=== PATIENT | male | born 1960 | race Hispanic/Latino ===

== ENCOUNTER 2020-03-23 09:00 | Inpatient (IN) | payer OTHER ==
[~2020-03-23] VITALS: Ht 170.2 cm; Wt 56.7 kg
[2020-03-23 11:20] LABS: BASOPHILS % (AUTO) 0.2 % (0.0-5.0); EOSINOPHILS % (AUTO) 0.5 % (0.0-8.0); HEMATOCRIT 44.9 % (42-54); LYMPHOCYTES % (AUTO) 12.4 % (21.0-51.0); MEAN CORPUSCULAR HEMOGLOBIN 36.4 pg (27.0-33.0); MEAN CORPUSCULAR HGB CONC 32.7 g/dL (32.0-36.0); MEAN CORPUSCULAR VOLUME 111.1 fL (79-99); MONOCYTES % (AUTO) 8.8 % (3.0-13.0); NEUTROPHILS % (AUTO) 77.5 % (40.0-77.0); PLATELET COUNT (AUTO) 190 K/uL (130-400); RED BLOOD CELL COUNT(AUTO) 4.04 MIL/uL (4.50-6.20); WHITE BLOOD COUNT (AUTO) 6.2 K/uL (4.8-10.8)
[2020-03-23 11:21] LABS: CREATININE 0.9 mg/dL (0.5-1.5); POTASSIUM 4.2 mmol/L (3.5-5.1)
[2020-03-23 11:36] LABS: APPEARANCE,URINE Cloudy (CLEAR); BILIRUBIN,URINE Negative (NEGATIVE); COLOR,URINE Yellow (YELLOW); GLUCOSE, URINE (UA) Negative (NEGATIVE); KETONES,URINE Negative (NEGATIVE); LEUKOCYTE ESTERASE ,URINE Trace (NEGATIVE); NITRATE,URINE Negative (NEGATIVE); OCCULT BLOOD,URINE Negative (NEGATIVE); PH,URINE 7.5 (5.0-8.0); PROTEIN,URINE Negative (NEGATIVE)
[2020-03-23 12:27] LABS: INR 0.88 (0.85-1.15); PROTHROMBIN TIME 9.5 SEC (9.6-11.6)
[2020-03-23 12:54] LABS: AMORPHOUS SEDIMENT,UR Many /LPF (None Seen); BACTERIA,URINE Rare /HPF (None Seen); MUCUS,URINE Few LPF (None Seen); RBC,URINE 0-1 /HPF (0-1); SQUAMOUS EPITHELIAL CELL,UR Rare /HPF (0-2); WBC,URINE 0-1 /HPF (0-1)
[2020-03-26 16:14] VITALS: BP 106/68
[2020-03-27] MEDS: GENTAMICIN SULFATE 240 MG in SODIUM CHLORIDE 0.9% 100 ML IV SCH (10:30)
[2020-03-27] MEDS ORDERED: CALC600T15 PO (14:03)
[2020-03-27] MEDS ORDERED: PRED10TA3 PO (14:03)
[2020-03-27] MEDS ORDERED: GABA-533 PO (14:03)
[2020-03-27] MEDS ORDERED: FORTEO SQ (14:03)
[2020-03-27] MEDS ORDERED: AZAT50TA17 PO (14:03)
[2020-03-27] MEDS ORDERED: PANT40TA54 PO (14:03)
[2020-03-27] MEDS ORDERED: FLUT1BLS3 IH (14:03)
[2020-03-27] MEDS ORDERED: MULT-729 PO (14:03)
[2020-03-27] MEDS ORDERED: CHOL200026 PO (14:03)
[2020-03-28] MEDS: GENTAMICIN SULFATE 240 MG in SODIUM CHLORIDE 0.9% 100 ML IV SCH (10:30)
[2020-03-29] MEDS: GENTAMICIN SULFATE 240 MG in SODIUM CHLORIDE 0.9% 100 ML IV SCH (10:30)
[2020-03-30] VITALS (23 sets, daily range): BP systolic 97–126; BP diastolic 61–80
[2020-03-30] MEDS ORDERED: CEFAZOLIN SODIUM 1 GM VIAL IVP ONE (08:00)
[2020-03-30] MEDS ORDERED: SODIUM CHLORIDE 0.9% 1000ML 1,000 ML IV ONE (09:53)
[2020-03-30] MEDS: GENTAMICIN SULFATE 240 MG in SODIUM CHLORIDE 0.9% 100 ML IV SCH (10:30)
[2020-03-30] MEDS ORDERED: CEFAZOLIN SODIUM 1 GM VIAL ONE ×4 (11:52→16:12)
[2020-03-30] MEDS ORDERED: SALBUTAMOL PO (12:02)
[2020-03-30] MEDS ORDERED: THEOPHYLLINE PO (12:02)
[2020-03-30] MEDS ORDERED: ACETAMINOPHEN EXTRA STRENGTH 500 MG TABLET ONE (14:10)
[2020-03-30] MEDS ORDERED: CELECOXIB 200 MG CAP ONE (14:10)
[2020-03-30] MEDS ORDERED: METOCLOPRAMIDE 10 MG/2 ML VIAL ONE (14:10)
[2020-03-30] MEDS ORDERED: KETOROLAC TROMETHAMINE 15MG/ML ONE (14:10)
[2020-03-30] MEDS ORDERED: SUCCINYLCHOLINE CHLORIDE 20 MG/ML 10 ML VIAL ONE ×2 (14:22→15:20)
[2020-03-30] MEDS ORDERED: NEOSTIGMINE 5MG/5ML SYR IV ONE (14:22)
[2020-03-30] MEDS ORDERED: PROPOFOL 10 MG/ML 20ML VIAL IV ONE (14:22)
[2020-03-30] MEDS ORDERED: MIDAZOLAM HCL 1 MG/ML 2ML VIAL ONE (14:22)
[2020-03-30] MEDS ORDERED: FENTANYL CITRATE PF 50 MCG/1 ML 2ML VIAL ONE (14:22)
[2020-03-30] MEDS ORDERED: ONDANSETRON HCL 4 MG/2 ML VIAL ONE ×2 (14:22→17:47)
[2020-03-30] MEDS ORDERED: LIDOCAINE PF 2% 5ML ABBOJECT ONE (14:22)
[2020-03-30] MEDS ORDERED: DEXAMETHASONE SOD PHOSPHATE 10MG/ML 1ML VIAL ONE (14:22)
[2020-03-30] MEDS ORDERED: GLYCOPYRROLATE 1 MG/5 ML SYRINGE ONE (14:22)
[2020-03-30] MEDS ORDERED: ROCURONIUM 10MG/1ML SYR 10 MG/ML ML ONE ×2 (14:22→16:17)
[2020-03-30] MEDS ORDERED: TRANEXAMIC ACID 1000MG/10ML ONE (14:40)
[2020-03-30] MEDS ORDERED: HYDROCORTISONE SOD SUCCINATE 100 MG/2 ML VIAL ONE (15:13)
[2020-03-30] MEDS ORDERED: EPHEDRINE SULFATE 50 MG/ML AMPULE ONE (15:28)
[2020-03-30] MEDS ORDERED: PHENYLEPHRINE HCL 10 MG/ML 1ML VIAL IV ONE ×2 (15:28→15:30)
[2020-03-30] MEDS ORDERED: ROPIVACAINE 0.5% 5MG/ML 30ML IJ ONE (15:30)
[2020-03-30] MEDS ORDERED: ONDANSETRON HCL 4 MG/2 ML VIAL IVP PRN (18:15)
[2020-03-30] MEDS ORDERED: LIDOCAINE HCL-MPF 1% 2ML VIAL IV PRN (18:15)
[2020-03-30] MEDS ORDERED: DiphenhydrAMINE HCL 50 MG/ML VIAL IVP PRN (18:15)
[2020-03-30] MEDS ORDERED: OXYCODONE HCL 5 MG TAB PO PRN (18:15)
[2020-03-30] MEDS ORDERED: KETOROLAC TROMETHAMINE 15MG/ML IV PRN (18:15)
[2020-03-30] MEDS ORDERED: FERROUS FUMARATE 324 MG TABLET PO PRN (18:15)
[2020-03-30] MEDS: ACETAMINOPHEN EXTRA STRENGTH 500 MG TABLET PO SCH (18:15)
[2020-03-30] MEDS: SODIUM CHLORIDE 0.9% 1000ML 1,000 ML IV SCH ×3 (18:15→20:38)
[2020-03-30] MEDS ORDERED: CALCIUM CARBONATE 500 MG TABLET PO PRN (18:15)
[2020-03-30] MEDS ORDERED: TEMAZEPAM 15 MG CAPSULE PO PRN (18:15)
[2020-03-30] MEDS ORDERED: POTASSIUM CHLORIDE 10% ELIXIR 20 MEQ/15 ML UDCUP PO PRN (18:15)
[2020-03-30] MEDS ORDERED: POTASSIUM CHLORIDE 20 MEQ ERTAB PO PRN (18:15)
[2020-03-30] MEDS ORDERED: TRAMADOL HCL 50 MG TABLET PO PRN (18:15)
[2020-03-30] MEDS ORDERED: POTASSIUM CHLORIDE 20MEQ/100ML 100 ML IV PRN (18:15)
[2020-03-30] MEDS ORDERED: TRANEXAMIC ACID 1000MG/10ML IV ONE (18:45)
[2020-03-30] MEDS ORDERED: TERIPARATIDE SQ SCH (21:00)
[2020-03-30] MEDS ORDERED: **HM**(Cholecalciferol (Vitamin D3) (Vitamin D3) 50 MCG PO SCH (21:00)
[2020-03-30] MEDS ORDERED: **HM**(Fluticasone/Umeclidin/Vilanter (Trelegy Ellipta 100-62.5- IH SCH (21:00)
[2020-03-30] MEDS: GABAPENTIN 300 MG CAPSULE PO SCH (22:15)
[2020-03-30] MEDS: THEOPHYLLINE ANHYDROUS 100 MG CAP.ER.24H PO SCH (22:15)
[2020-03-30] MEDS: AZATHIOPRINE 50 MG TAB PO SCH (22:15)
[2020-03-30] MEDS: CELECOXIB 200 MG CAP PO SCH (22:16)
[2020-03-30] MEDS: CALCIUM CARBONATE 500 MG TABLET PO SCH (22:16)
--- NOTE | 2020-03-30 22:20 | NUR ---
NOTE SPOKE WITH PATIENT ABOUT HOME MEDICATIONS THAT PHARMACY WILL NOT HAVE AVAILABLE. HE SAID TO CALL HIS . CALLED VIA PHONE PATIENT'S REGARDING THE MEDICATIONS PHARMACY WILL NOT BE PROVIDING ( MENTIONED TO HER BEFORE SHE WENT HOME) SO SHE CAN BRING THEM TOMORROW. SHE ACKNOWLEDGED UNDERSTANDING.
[2020-03-31] MEDS ORDERED: HYDROCORTISONE SOD SUCCINATE 100 MG/2 ML VIAL IM SCH
[2020-03-31] MEDS: CEFAZOLIN SODIUM 1 GM VIAL IVP SCH ×2 (00:42→06:43)
[2020-03-31] MEDS: HYDROCORTISONE SOD SUCCINATE 100 MG/2 ML VIAL IV SCH ×3 (00:43→16:30)
[2020-03-31] MEDS: ACETAMINOPHEN EXTRA STRENGTH 500 MG TABLET PO SCH ×3 (00:43→18:51)
[2020-03-31 03:20] VITALS: BP 101/61
[2020-03-31 05:33] LABS: HEMATOCRIT 36.3 % (42-54); MEAN CORPUSCULAR HGB CONC 33.1 g/dL (32.0-36.0); PLATELET COUNT (AUTO) 190 K/uL (130-400); RED BLOOD CELL COUNT(AUTO) 3.33 MIL/uL (4.50-6.20); RED CELL DISTRIBUTION WIDTH 13.7 % (11.0-15.5); WHITE BLOOD COUNT (AUTO) 6.9 K/uL (4.8-10.8)
[2020-03-31 05:53] LABS: POTASSIUM 4.5 mmol/L (3.5-5.1)
[2020-03-31 06:05] LABS: PLATELET MORPHOLOGY PLT CLUMPS PRESENT
[2020-03-31] MEDS: GABAPENTIN 300 MG CAPSULE PO SCH ×2 (08:24→20:57)
[2020-03-31] MEDS: CELECOXIB 200 MG CAP PO SCH ×2 (08:24→20:57)
[2020-03-31] MEDS: APIXABAN 2.5 MG TABLET PO SCH ×2 (08:25→20:56)
[2020-03-31] MEDS: CALCIUM CARBONATE 500 MG TABLET PO SCH ×2 (08:25→20:56)
[2020-03-31] MEDS: OXYCODONE HCL 5 MG TAB PO PRN ×2 (08:26→12:44)
[2020-03-31] MEDS: AZATHIOPRINE 50 MG TAB PO SCH ×2 (08:31→20:57)
[2020-03-31 08:33] VITALS: BP 96/61
[2020-03-31] MEDS: GENTAMICIN SULFATE 240 MG in SODIUM CHLORIDE 0.9% 100 ML IV SCH (08:35)
[2020-03-31] MEDS ORDERED: PANTOPRAZOLE SODIUM 40 MG TABLET.DR PO SCH (09:00)
[2020-03-31] MEDS ORDERED: POLYETHYLENE GLYCOL 3350 17 GM POWD.PACK PO SCH (09:00)
[2020-03-31] MEDS ORDERED: MULTIVITAMIN TABLET PO SCH (09:00)
[2020-03-31] MEDS ORDERED: PREDNISONE 5 MG TABLET PO SCH (09:00)
[2020-03-31] MEDS ORDERED: TAMSULOSIN HCL 0.4 MG CAP.ER.24H PO SCH (09:00)
--- NOTE | 2020-03-31 09:45 | NUR ---
DCP CM met with pt discussed dc plans. Pt is independent prior to admission, lives at home with spouse. Pt has shower chair and cane. Denies any other equipments/services. Feels safe to go back home, still drives, spouse able to assist with transportations and needs as necessary. Agreeable for home w/HH and DME, MICHEL signed for [facility] and [facility]. DC plan to home w/HH and DME. CM to continue to follow up. Addendum: 03/31/20 at 1133 by RAZIA JOHN LVN CM Amended: Links added.
--- NOTE | 2020-03-31 09:46 | NUR ---
CM Note: [facility] pending approval CM faxed order, clinicals, PT to [facility], confirmation received. Spoke to Cadence deutsch today/tomorrow, pending approval at this time. Primary nurse aware. CM to continue to follow up.
--- NOTE | 2020-03-31 09:47 | NUR ---
JAN Note: [facility] pending approval and delivery CM faxed order and clinicals to [facility], confirmation received. Spoke to Tiara sifuentes dcp today/tomorrow, will work on standard walker no wheels and 3in 1 chair. Primary nurse aware. CM to continue to follow up.
[2020-03-31 11:37] VITALS: BP 104/66
--- NOTE | 2020-03-31 12:43 | NUR ---
9209 patient signed IM Letter, I faxed IM Letter to [phone] and placed in chart under consent tab.
--- NOTE | 2020-03-31 13:19 | NUR ---
CM Note: [facility] approval CM spoke to Cadence stanley/[facility], pt has approval, will see pt tomorrow/day after DC. Dr Van updated. Primary nurse aware. CM to continue to follow up.
--- NOTE | 2020-03-31 13:20 | NUR ---
CM Note: [facility] CM spoke to Tiara stanley/[facility], pt has approval, will deliver standard walker no wheels and 3in1 chair at home today/tomorrow morning. Dr Van updated. Primary nurse aware. May borrow hospital walker if pt dc today, nurse to instruct pt to return borrow walker once own DME arrives at home. CM to continue to follow up.
[2020-03-31 16:25] VITALS: BP 91/54
[2020-03-31] MEDS ORDERED: HYDR-4457 PO (18:56)
[2020-03-31] MEDS ORDERED: APIX2.5T PO (18:56)
[2020-03-31] MEDS: THEOPHYLLINE ANHYDROUS 100 MG CAP.ER.24H PO SCH (20:56)
--- NOTE | 2020-03-31 21:42 | NUR ---
DISCHARGE NOTE 2049 MEDICATIONS FOR EVENING WERE ADMINISTERED, SEE EMAR. 2107 PATIENT AND SPOUSE WERE GIVEN DISCHARGE INSTRUCTIONS VIA TEACH BACK. 20G PIV TO LEFT HAND DISCONTINUED, TIP INTACT. INSTRUCTED PATIENT TO CALL TOMORROW MORNING TO MAKE FOLLOW UP APPOINTMENT WITH DR. GOODWIN FOR 04/17/20. PATIENT INSTRUCTED ON MEDICATIONS PREDNISONE, ELIQUIS, AND NORCO. ELECTRONIC PRESCRIPTION SENT TO HIS CHOICE PHARMACY FOR ELIQUIS AND NORCO. 2129 SHEKHAR DRESSING TO LEFT HIP CHANGED AND INSTRUCTED PATIENT AND SPOUSE ON ON IT. PATIENT/SPOUSE INSTRUCTED ON REMOVING SHEKHAR BATTERY PACK TO SHOWER, PATIENT VOICED UNDERSTANDING. SHEKHAR DRESSING TO BE REMOVED BY HOME HEALTH NURSE ON 04/06/20. PATIENT DENIES ANY PAIN AT THIS TIME. 2141 PATIENT WHEELED TO [facility] FOR DISCHARGE BY MELO [place] AND SPOUSE ACCOMPANYING. SAID SHE HAD EQUIPMENT IN CAR ALREADY. 2245 REPORT GIVEN TO MOIRA BARNES RN ([facility]) FOR ALF AND PHYSICAL THERAPY SERVICES.
[2020-04-02] MEDS ORDERED: BISACODYL 10 MG SUPP.RECT RC PRN (18:15)
== END 2020-03-31 21:41 | disposition home health service (06) | DRG 470 ==
LOC: EDSTATUS 09:00 → INTOOBSV 03-30 09:43 → OBSVTOIN 03-30 09:43 → DAHIP 03-30 09:43 → 3AH 03-30 19:26
PROVIDERS: ADMIT Orthopaedic Surgery; ATTEND Orthopaedic Surgery
PROC: 0SRS0JZ Replacement of Left Hip Joint, Femoral Surface with Synthetic Substitute, Open Approach (ICD-10-PCS; principal; 2020-03-30 15:13)
PROC: 3E0T3BZ Introduction of Anesthetic Agent into Peripheral Nerves and Plexi, Percutaneous Approach (ICD-10-PCS; 2020-03-30 15:13)
DX: M87.152 Osteonecrosis due to drugs, left femur (principal); D62 Acute posthemorrhagic anemia; T38.0X5A Adverse effect of glucocorticoids and synthetic analogues, initial encounter; Z20.828 Contact with and (suspected) exposure to other viral communicable diseases; G57.90 Unspecified mononeuropathy of unspecified lower limb; Z83.3 Family history of diabetes mellitus; J45.909 Unspecified asthma, uncomplicated; I95.9 Hypotension, unspecified; Y92.89 Other specified places as the place of occurrence of the external cause; E11.41 Type 2 diabetes mellitus with diabetic mononeuropathy
CPT/HCPCS: 36415; 73503; 80048; 81001; 85025; 85027; 85610; 87088; 87641; 96365; 96374; 96375; 97039; C1776; G0378; J0330; J0690; J1100; J1580; J1720; J1885; J2001; J2250; J2370; J2405; J2704; J2710; J2765; J2795; J3010; J3490; J7030; J7120; J7500; J7512; U0003